=== PATIENT | male | born 1950 | race American Indian/Alaskan Native ===

== ENCOUNTER 2019-05-17 10:41 | Outpatient (CLI) | payer OTHER ==
--- NOTE | 2019-05-17 12:10 | Magnetic Resonance Report ---
MRI ABDOMEN WITHOUT CONTRAST HISTORY: Right renal mass COMPARISON: None. TECHNIQUE: Multiplanar, multisequence MR imaging was performed of the abdomen without intravenous con trast. CONTRAST: None. FINDINGS: Comment: There is moderate breathing motion artifact on all sequences which limits this exam. Liver: No significant abnormality. Biliary: No significant abnormality. Spleen: No significant abnormality. Pancreas: No significant abnormality. Adrenals: No significant abnormality. Kidneys: The left kidney is absent. Correlate for left nephrectomy. No abnormality is appreciated in the left renal fossa. The right kidney measures 10.5 cm in length and contains too many to count cyst s ranging from a few millimeters to 3 cm in diameter. Some of the cysts demonstrate intermediate or i ncreased signal within suggesting hemorrhagic transformation. There is no obvious renal mass although this exam is slightly limited without IV contrast. No hydronephrosis or perinephric adenopathy. Lymphatics: No lymphadenopathy. Vasculature: No significant abnormality. Bowel and Mesentery: Visualized portions without significant abnormality. Fluid: No ascites. Osseous Structures: No significant abnormality. Additional Findings: None. IMPRESSION: Assumed left nephrectomy. The right kidney contains numerous simple and slightly complex cysts with hemorrhagic change. No obvi ous right renal mass although this examination is somewhat limited without IV gadolinium. No suspicio us adenopathy. Signer Name: Wander Lawson Jr, MD Signed: 05/17/2019 12:06 PM Workstation Name: [id number]
== END 2019-05-17 10:42 | disposition home or self-care (01) ==
LOC: MRI 10:41
PROVIDERS: ATTEND Urology
DX: N28.1 Cyst of kidney, acquired (principal); R97.20 Elevated prostate specific antigen [PSA]; Z90.5 Acquired absence of kidney
CPT/HCPCS: 74181

== ENCOUNTER 2019-06-14 10:05 | Outpatient (CLI) | payer OTHER ==
--- NOTE | 2019-06-14 14:10 | Nuclear Medicine Report ---
NUCLEAR MEDICINE BONE SCAN, WHOLE BODY INDICATION: PROSTATE CANCER. TECHNIQUE: 25.6 mCi of Tc-99m MDP were injected IV. Whole body images were obtained. COMPARISON: No relevant prior imaging study available. FINDINGS: Skeletal Structures: Fairly symmetric, likely degenerative uptake is present involving the shoulders , sternoclavicular joints and knees. Skeletal Lesions: None. Soft Tissues: Normal. Kidneys: Normal, symmetric activity. Additional Findings: None. IMPRESSION: Degenerative findings as described. No evidence for osseous metastasis. Signer Name: Wander Lawson Jr, MD Signed: 06/14/2019 2:06 PM Workstation Name: [id number]
== END 2019-06-14 10:06 | disposition home or self-care (01) ==
LOC: NM 10:05
PROVIDERS: ATTEND Urology
DX: C61 Malignant neoplasm of prostate (principal)
CPT/HCPCS: 78306; A9503